=== PATIENT | female | born 1965 | race Caucasian/White ===

== ENCOUNTER 2017-02-05 10:05 | Day surgery (SDC) | payer BC ==
[~2017-02-05] VITALS: Ht 160 cm; Wt 96.6 kg
[~2017-02-05 10:05] MED LIST: AMBIEN10 MG PO; CLARITIN10 MG PO; HAWTHORN150 MG PO; TRANSDERM-SCOP1 EACH TD; TYLENOL EXTRA500 MG PO; VENTOLIN HFA18 GM IH; XANAX1 MG PO
[2017-02-05 11:16] VITALS: BP 181/88
[2017-02-05 16:46] VITALS: BP 185/82
[2017-02-05 17:45] VITALS: BP 128/68
== END 2017-02-05 18:15 | disposition home or self-care (01) ==
LOC: SDC 10:05
DX: T85.848A Pain due to other internal prosthetic devices, implants and grafts, initial encounter (principal); Y81.8 Miscellaneous general- and plastic-surgery devices associated with adverse incidents, not elsewhere classified; Z98.82 Breast implant status; Z85.3 Personal history of malignant neoplasm of breast; I10 Essential (primary) hypertension; Z87.891 Personal history of nicotine dependence; J45.909 Unspecified asthma, uncomplicated; Z88.0 Allergy status to penicillin
CPT/HCPCS: 87070; 87075; 87205; 88300; 88302; J1170; J2250; J2405; J3010

== ENCOUNTER 2017-02-09 09:03 | Emergency (ER) | payer BC ==
[~2017-02-09] VITALS: Ht 160 cm; Wt 97.3 kg
[2017-02-09 10:33] VITALS: BP 168/105
== END 2017-02-09 10:33 | disposition home or self-care (01) ==
LOC: EME 09:03
DX: T81.89XA Other complications of procedures, not elsewhere classified, initial encounter (principal); Z90.10 Acquired absence of unspecified breast and nipple; Z85.3 Personal history of malignant neoplasm of breast; I10 Essential (primary) hypertension; J45.909 Unspecified asthma, uncomplicated
CPT/HCPCS: 99281; 99284